=== PATIENT | male | born 1960 | race Caucasian/White ===

== ENCOUNTER → 2020-01-10 | Outpatient (CLI) | payer OTHER ==
--- NOTE | 2020-01-10 12:21 | US ---
EXAM DESCRIPTION: Venous,Lower Extremity LT: ULTRASOUND. CLINICAL HISTORY: UNILATERAL LEG EDEMA DVT. Focal pain in the medial calf. COMPARISON: None Available. TECHNIQUE: Ayala-scale and doppler sonographic evaluation of the deep venous system of the left lower extremity. FINDINGS: Doppler evaluation shows normal color flow and normal phasicity and augmentation of the left common femoral vein, left femoral vein, popliteal vein, left greater saphenous vein, junction with the CFV. Also normal color flow and normal phasicity and augmentation of the peroneal, and and posterior tibial vein. The left lower extremity deep veins were completely compressible; normal occlusion with transducer pressure. Ayala-scale survey showed no echogenic thrombus within these veins. Hypoechoic mass corresponding to the area of pain containing small cystic spaces measuring 6.6 x 2.8 x 1.5 cm and nonvascular. IMPRESSION: 1. Duplex ultrasound evaluation of the left lower extremity deep venous system showing no evidence of thrombosis. 2. Complicated left Boateng's cyst in the left medial calf corresponding to region of pain. Electronically signed by: Solomon Rincon MD 01/10/2020 12:19 PM CDT
== END ==
LOC: US 10:54
PROVIDERS: ATTEND Nurse Practitioner Family
DX: R60.0 Localized edema (principal)